=== PATIENT | female | born 1990 | race Caucasian/White ===

== ENCOUNTER 2017-01-05 19:27 | Emergency (ER) | payer OTHER ==
[2017-01-08] MEDS ORDERED: PHENERGAN25 M1 PO (13:20)
[2017-01-08] MEDS ORDERED: ZOFRAN ODT4 MG/UDTAB PO (13:20)
== END 2017-01-06 00:25 | disposition home or self-care (01) ==
LOC: D.ER 19:27
DX: K80.50 Calculus of bile duct without cholangitis or cholecystitis without obstruction (principal)

== ENCOUNTER 2017-01-09 05:58 | Day surgery (SDC) | payer MEDICAID ==
[~2017-01-09] VITALS: Ht 162.6 cm; Wt 111.1 kg
[~2017-01-09 05:58] MED LIST: PHENERGAN25 M1 PO; ZOFRAN ODT4 MG/UDTAB PO
[2017-01-09 08:24] VITALS: BP 113/73; Ht 162.6 cm; Wt 111.1 kg
[2017-01-09 08:52] LABS: HCG URINE NEGATIVE (NEGATIVE)
--- NOTE | 2017-01-09 15:56 | NUR ---
1550 REPORT TO SIRENA MIRANDA RN
--- NOTE | 2017-01-09 16:35 | NUR ---
PATIENT AMBULATES TO BATHROOM TO VOID IN TOILET, VOIDS LARGE AMOUNT. PATIENT DENIES DIZZINESS OR UNSTEADINESS, WALKS WITH STAND-BY ASSISTANCE ONLY. LEFT WRIST PIV DC'D WITH TIP INTACT. PATIENT DRESSING IN PERSONAL CLOTHING
--- NOTE | 2017-01-09 16:55 | NUR ---
DISCHARGE INSTRUCTIONS REVIEWED WITH PATIENT AND MOTHER. DISCHARGED HOME VIA WHEELCHAIR TO PRIVATE VEHICLE
--- NOTE | 2017-01-12 11:13 | OP ---
PATIENT NAME: NATALEE GOOD MEDICAL RECORD: [id number] :89 LOCATION:D.[facility] ADMISSION DATE: SURGEON: YVON WALLS MD DATE OF OPERATION: 01/09/2017 PREOPERATIVE DIAGNOSIS: Symptomatic gallstones. POSTOPERATIVE DIAGNOSES: 1. Acute cholecystitis. 2. Hepatomegaly. PROCEDURES: 1. Laparoscopic cholecystectomy. 2. Intraoperative cholangiography without immediate surgeon interpretation. 3. An 18-gauge core needle liver biopsies. SURGEON: Yvon Walls MD CHIEF OF POLICE: None. BLOOD LOSS: Minimal. ANESTHESIA: General. COMPLICATIONS: None. The risks, possible complications, and alternatives to the procedure were explained to the patient. She elects to proceed. The discussion specifically included, but was not limited to, bleeding requiring emergency reoperation, infection, intestinal injury as well as common bile duct injury. OPERATIVE COURSE: The patient was conveyed to the operating room electively on 01/09/2017. General anesthesia was induced by the anesthesia staff. The abdomen was sterilely prepped and draped. A small skin jayne was accomplished in the left upper quadrant. A Veress needle was inserted through the skin jayne into the peritoneal cavity. CO2 insufflation was begun. Once a sufficient pneumoperitoneum had been achieved, a 5-mm trocar was inserted through the incision in the right upper quadrant. Under direct internal vision, utilizing a television camera, a 12-mm trocar was inserted through an incision at the umbilicus. Two more trocars were inserted, a 5-mm trocar in the epigastrium and another 5-mm trocar far laterally in the right upper quadrant. During insertion of the Veress needle and all trocars, there appeared to have been no injury to the bowels, any intraperitoneal or retroperitoneal structures. An abdominal survey was undertaken. The liver was enlarged. The indication for the liver biopsy was hepatomegaly. Under laparoscopic guidance, I percutaneously accessed the right upper quadrant utilizing 18-gauge core needle liver biopsy device. Cores were obtained over the convexity of the liver. The biopsy sites were made hemostatic with electrocautery. The gallbladder was grasped. It was quite turgid. I advanced a cholangiogram trocar, punctured the fundus of the gallbladder, aspirated pus, and then injected dye. Under real time fluoroscopy, there was no filling of the cystic duct. It appeared that there had been impaction of a stone within the infundibulum of the gallbladder or the cystic duct. Therefore, I was unable to OPERATIVE REPORT [id number] NATALEE GOOD assess the common bile ductal structures. The cholangiogram trocar was removed. Upon removal, a good bit of pus started to come out of the gallbladder. I aspirated this in order to prevent contamination. There was some spillage of pus as well as some spillage of stones. I aspirated all the pus that I could identify and I lavaged the abdomen very thoroughly at the end of the procedure. All the stones that dropped out, that I could identify, were removed at the end of the procedure as well. The gallbladder was grasped and retracted cephalad. The infundibulum was grasped and retracted laterally. Blunt dissection was begun in the triangle of Calot. One cystic artery and one cystic duct were identified. These were clipped multiply and divided between clips. The gallbladder was then excised from its bed in the liver. It was placed within a bag retrieval device. I had to enlarge the fascial defect at the umbilicus as well as the skin defect due to the size of the gallbladder and the gallstones. A 12-mm trocar was placed and the abdomen was reinsufflated. I irrigated and aspirated the right upper quadrant as well as the right lower quadrant. A pretty extensive lavage was undertaken. I retrieved all of the gallstones that I could identify. There was no bleeding even at low pressure of 8. Utilizing the Deangelo-Stevie suture closure device and #0 Vicryl sutures, the fascia at the umbilicus was closed with interrupted #0 Vicryl sutures. The skin at the umbilicus was closed with interrupted 4-0 Vicryl Rapide sutures. The other skin incisions were closed with interrupted intracuticular 3-0 Vicryls. Benzoin and Steri-Strips were applied. The patient was then extubated and conveyed to postanesthesia care unit, where she was in stable condition. Due to some low preoperative oxygen saturations and postoperative oxygen saturations, I am going to recommend to the patient that she undergo either pulmonary function testing and/or sleep study. TRANSINT:[id number] Voice Confirmation ID: [id number] DOCUMENT ID: [id number] YVON WALLS MD at 1113 CC: [id number] DICTATION DATE: 01/09/17 1506 BIKE SHOP MANAGER: 01/09/17 1907 [facility] 01/09/17 [place] [id number] [place] [id number]
--- NOTE | 2017-01-12 11:13 | HP ---
PATIENT: NATALEE GOOD MEDICAL RECORD: [id number] ACCOUNT: [id number] LOCATION:[facility] : 89 ADMISSION DATE: 01/09/17 HISTORY AND PHYSICAL EXAMINATION CHIEF COMPLAINT: Pain. HISTORY OF PRESENT ILLNESS: The patient has been having right upper quadrant abdominal pain. It is constant. She has been having nausea. She has gallstones on ultrasound. I am going to plan for laparoscopic cholecystectomy, intraoperative cholangiography, and possible liver biopsy. The risks, possible complications, and alternatives to procedure were explained to the patient. She elects to proceed. ALLERGIES: SEPTRA. HOME MEDICATIONS: Zofran and Phenergan. SOCIAL HISTORY: Nonsmoker. PHYSICAL EXAMINATION: GENERAL: The patient does not appear acutely ill. She does not appear chronically ill. VITAL SIGNS: Reviewed. EARS: External ears appear normal. EYES: Extraocular movements are intact. NECK: Trachea is midline. CHEST: No intercostal retractions. PULMONARY: Nonlabored. No stridor. ABDOMEN: Right upper quadrant tenderness with guarding. No peritonitis to percussion. IMPRESSION: Symptomatic gallstones. PLAN: Laparoscopic cholecystectomy, intraoperative cholangiography, and possible liver biopsy. TRANSINT:[id number] Voice Confirmation ID: [id number] DOCUMENT ID: [id number] CC: Dr. Kendall Pimentel, YVON WALLS MD at 1113 CC: DR. KENDALL PIMENTEL [id number] DICTATION DATE: 01/09/17 1332 TECHNICIAN SUBMARINE CABLE EQUIPMENT: 01/09/17 1607 [facility] 01/09/17 [place] [id number] [place] [id number]
== END 2017-01-09 16:55 | disposition home or self-care (01) ==
LOC: D.OPS 05:58 → D.PAN 09:15 → D.OPS 16:55
PROVIDERS: Surgery
DX: K81.0 Acute cholecystitis (principal); R16.0 Hepatomegaly, not elsewhere classified; K21.9 Gastro-esophageal reflux disease without esophagitis; E66.9 Obesity, unspecified; Z68.41 Body mass index [BMI] 40.0-44.9, adult; Z01.812 Encounter for preprocedural laboratory examination

== ENCOUNTER → 2019-01-15 14:05 | Outpatient (CLI) | payer MEDICAID ==
[2017-01-09 08:24] VITALS: BMI 42.1
== END | disposition home or self-care (01) ==
LOC: D.LDO 14:05
PROVIDERS: ATTEND Obstetrics & Gynecology
DX: O36.8120 Decreased fetal movements, second trimester, not applicable or unspecified (principal)

== ENCOUNTER → 2019-04-21 15:09 | Outpatient (CLI) | payer MEDICAID ==
[2017-01-09 08:24] VITALS: BMI 42.1
[2019-04-21 15:30] LABS: APPEARANCE CLEAR (CLEAR); BILIRUBIN NEGATIVE (NEGATIVE); COLOR YELLOW (YELLOW); GLUCOSE NEGATIVE (NEGATIVE); KETONE NEGATIVE (NEGATIVE); NITRITE NEGATIVE (NEGATIVE); PROTEIN NEGATIVE (NEGATIVE); UROBILINOGEN NORMAL (NORMAL)
[2019-04-21 17:45] LABS: BASOPHILS 0.2 % (0-2); EOSINOPHILS 1.8 % (0-7); HEMATOCRIT 30.1 % (36.0-48.0); HEMOGLOBIN 9.4 g/dL (12-16); IMMATURE GRANULOCYTES 0.2 % (0-5); LYMPHOCYTES 20.2 % (15-50); MCH 27.2 pg (26.0-34.0); MCHC 31.2 g/dL (31.0-37.0); MCV 87.2 fL (80.0-100.0); MEAN PLATELET VOLUME 9.8 fL (7.4-10.4); MONOCYTES 5.9 % (2-11); NEUTROPHILS 71.7 % (40-80); PLATELET COUNT 243 10x3/uL (130-400); RBC 3.45 10x6/uL (4.00-5.40); RDW 14.1 % (11.5-14.5); WBC 8.8 10x3/uL (4.8-10.8)
== END | disposition home or self-care (01) ==
LOC: D.LDO 15:09
PROVIDERS: ATTEND Obstetrics & Gynecology
DX: O26.899 Other specified pregnancy related conditions, unspecified trimester (principal); Z3A.00 Weeks of gestation of pregnancy not specified; R42 Dizziness and giddiness; R11.0 Nausea

== ENCOUNTER 2019-05-12 09:27 | Inpatient (IN) | payer MEDICAID ==
[2019-05-12] VITALS (11 sets, daily range): BP systolic 93–128; BP diastolic 51–82; Ht 162.6 cm; Wt 106.6 kg
[~2019-05-12] VITALS: Ht 162.6 cm; Wt 106.6 kg
[2019-05-12] MEDS ORDERED: SYNTHROID150 MCG PO (10:17)
[2019-05-12] MEDS ORDERED: PRENAVITE1 TAB PO (10:18)
[2019-05-12 11:37] LABS: HEMATOCRIT 29.8 % (36.0-48.0); HEMOGLOBIN 9.4 g/dL (12-16); MCHC 31.5 g/dL (31.0-37.0); MCV 85.6 fL (80.0-100.0); MEAN PLATELET VOLUME 10.3 fL (7.4-10.4); RBC 3.48 10x6/uL (4.00-5.40); RDW 14.8 % (11.5-14.5); WBC 9.1 10x3/uL (4.8-10.8)
--- NOTE | 2019-05-12 13:15 | NUR ---
BABY BOY BORN AT 1303.
--- NOTE | 2019-05-12 14:06 | NUR ---
RECEIVED PT FROM VIA BED TO ROOM 1273. BED LOCKED AND PLACED IN LOW POSITION. VSS. HRRR WITHOUT AUDIBLE MURMUR. BBS CLEAR. BS X 4. ABDOMEN SOFT/NON-DISTENDED. FUNDUS FIRM AT U/1. RUBRA LOCHIA MOD AMT. PT STATES UNABLE TO MOVE LEGS FREELY. ABDOMINAL INCISION WITHOUT REDNESS, SWELLING OR DRAINAGE NOTED. PIV SITE CLEAR TO RIGHT HAND. NEW BAG PITOCIN 20 UNITS IN NS 1000 ML UP AT 125 ML/HR. GONZALEZ TO GRAVITY DRAINING DARK, YELLOW URINE. 200 ML EMPTIED FROM BAG. FRESH ICE PACK TO INCISION. TORADOL 30 MG GIVEN SIVP OVER 2 MINUTES FOR PT C/O ABDOMINAL/INCISIONAL PAIN/BURNING OF "7" ON 0-10 PAIN SCALE. SR UP X 2. CALL LIGHT IN REACH.
--- NOTE | 2019-05-12 14:30 | NUR ---
SCDS ON BLE. PUMP ON. PT INSTRUCTED ON PURPOSE. VERBALIZES UNDERSTANDING. SPRITE PROVIDED AT PT REQUEST.
--- NOTE | 2019-05-12 15:03 | NUR ---
PT C/O ABDOMINAL PAIN/BURNING OF "8" ON 0-10 PAIN SCALE. DILAUDID 2 MG GIVEN IVP OVER 2 MINUTES. PT INSTRUCTED ON MED. VERBALIZES UNDERSTANDING.
--- NOTE | 2019-05-12 15:12 | NUR ---
PT SITTING IN SEMI-ALLISON'S POSITION IN BED. SLIGHTLY DROWSY. FUNDUS FIRM AT U/1. RUBRA LOCHIA MOD AMT. PERIPADS CHANGED. PT UNABLE TO LEFT LEGS AT THIS TIME. ABDOMINAL INCISION WITHOUT REDNESS, SWELLING OR DRAINAGE NOTED.
--- NOTE | 2019-05-12 15:32 | NUR ---
O2 ON PER N/C AT 2 L/MIN. O2 SAT FROM 93%-98%.
--- NOTE | 2019-05-12 16:13 | NUR ---
PERICARE DONE. FUNDUS FIRM AT U/1. RUBRA LOCHIA SMALL TO MOD AMT. NO CLOTS EXPRESSED OR NOTED ON PERIPADS. PERIPADS AND CHUX CHANGED. PT MOVES WELL WITH MUCH ENCOURAGEMENT.
--- NOTE | 2019-05-12 16:14 | NUR ---
FRESH ICE PACK TO INCISION. SURGICAL SPLINT PILLOW PROVIDED.
--- NOTE | 2019-05-12 16:16 | NUR ---
PT INSTRUCTED ON INCENTIVE SPIROMETER. PT PULLS 2000. PT TURNS, COUGHS AND DEEP BREATHES.
--- NOTE | 2019-05-12 16:45 | NUR ---
PT SISTER AT DESK. STATES PT ASKING WHEN CAN SHE EAT. THIS NURSE TO ROOM. PT PROVIDED WITH SPRITE AND JEJUANCARLOSO PER REQUEST.
--- NOTE | 2019-05-12 18:18 | NUR ---
PT SITTING UP IN BED. FUNDUS FIRM AT U/1. RUBRA LOCHIA SCANT AMT. PERIPADS CHANGED. FRESH ICE PACK TO INCISION. I/O COMPLETED.
--- NOTE | 2019-05-12 18:20 | NUR ---
DR BILLY NOTIFIED OF URINE OUTPUT. ORDERS RECEIVED.
--- NOTE | 2019-05-12 19:06 | NUR ---
BEDSIDE SHIFT REPORT COMPLETED AT THIS TIME
--- NOTE | 2019-05-12 19:23 | NUR ---
SHIFT ASSESSMENT COMPLETED, SEE FLOWSHEET
--- NOTE | 2019-05-12 20:45 | NUR ---
DR BILLY NOTIFIED OF URINE OUTPUT OF 55ML SINCE 1922, NEW ORDER NOTED TO TRANFUSE 2 UNITS PRBC AND PREMEDICATE WITH 50 MG BENADRYL PO AND 1000MG TYLENOL PO.
--- NOTE | 2019-05-12 20:59 | NUR ---
ORDERS PLACED AND PATIENT INFORMED OF PLAN OF CARE. ALL QUESTIONS ANSWERED AND PT VERBALIZES UNDERSTANDING.
--- NOTE | 2019-05-12 21:28 | NUR ---
INFANT RETURNED TO ROOM VIA OPEN CRIB, ID VERIFIED. PERICARE DONE AT THIS TIME, SMALL RUBRA NOTED, PAD CHANGED. INFANT HANDED TO MOM FOR . NO FURTHER NEEDS IDENTIFIED, WILL CONTINUE TO MONITOR
--- NOTE | 2019-05-12 21:36 | NUR ---
PATIENT PRE-MEDICATED WITH TYLENOL AND BENADRYL PER MD ORDERS, SEE EMAR
--- NOTE | 2019-05-12 21:50 | NUR ---
PTS ID, BLOOD BAND NUMBER, BLOOD TYPE, , AND PRBC'S EXPIRATION DATE MATCHED AND VERIFIED WITH CARTER AVILA AT THE BEDSIDE AT THIS TIME
--- NOTE | 2019-05-12 21:55 | NUR ---
PRE-TRANSFUSION VITAL SIGNS OBTAINED
--- NOTE | 2019-05-12 21:57 | NUR ---
BLOOD TRANSFUSION STARTED AT 50ML/HR AT THIS TIME
--- NOTE | 2019-05-12 22:13 | NUR ---
PT DENIES ANY S/S OF BLOOD TRANSFUSION REACTION, RATE CHANGED TO 75ML/HR
--- NOTE | 2019-05-12 22:28 | NUR ---
PT DENIES S/S OF BLOOD TRANSFUSION REACTIONS, IV RATE CHANGED TO 125ML/HR
--- NOTE | 2019-05-12 22:45 | NUR ---
LINDA PROVIDED FOR PATIENT PER HER REQUEST, ALL LINENS PROVIDED FOR FOB TO SPEND THE NIGHT. NO FURTHER NEEDS IDENTIFIED AT THIS TIME, WILL CONTINUE TO MONITOR.
--- NOTE | 2019-05-12 23:05 | NUR ---
PT DENIES S/S OF BLOOD TRANSFUSION REACTION, IV RATE CHANGED TO 125ML/HR
--- NOTE | 2019-05-12 23:58 | NUR ---
PERICARE PERFORMED, SMALL RUBRA BLEEDING NOTED, CLEAN PADS PLACED AND FRESH ICE PACK PLACED. NO FURTHER NEEDS IDENTIFIED, BLOOD CONTINUE TO INFUSE VIA ALARIS PUMP WITH NO S/S OF REACTION NOTED. WILL CONTINUE TO MONITOR
--- NOTE | 2019-05-13 00:14 | NUR ---
blood transfusion completed at this time, line flushed with normal saline. vs wnl.
--- NOTE | 2019-05-13 00:43 | NUR ---
CHICKEN BROTH AND CRACKERS PROVIDED PER PT REQUEST. REMAINS AT BEDSIDE IN OPEN CRIB. SIGNIFICANT OTHER REMAINS AT BEDSIDE FOR SUPPORT. PT DENIES OTHER NEEDS AT THIS TIME. WILL CONTINUE TO MONITOR.
--- NOTE | 2019-05-13 01:09 | NUR ---
PTS ID,,BLOOD BAND#, BLOOD TYPE, UNIT NUMBER AND EXPIRATION DATE VERIFIED WITH CARTER GOMEZ AT THE BEDSIDE. VS TAKEN.
--- NOTE | 2019-05-13 01:12 | NUR ---
IV FLUSHED WITH NORMAL SALINE, BLOOD TRANFUSION INITIATED AT THIS TIME VIA ALARIS PUMP AT 50ML/HR
--- NOTE | 2019-05-13 01:27 | NUR ---
PATIENT DENIES S/S OF BLOOD TRANSFUSION REACTION, IV SITE REMAINS PATENT WITHOUT REDNESS,SWELLING OR SIGNS OF INFILTRATION. IV RATE CHANGED TO 75ML/HR
--- NOTE | 2019-05-13 02:30 | NUR ---
PATIENT RESTING WITH AUDIBLE SNORING. NO DISTRESS NOTED. BLOOD REMAINS INFUSING VIA ALARIS PUMP WITH NO S/S OF TRANSFUSION REACTION AT THIS TIME. WILL CONTINUE TO MONITOR
--- NOTE | 2019-05-13 03:40 | NUR ---
BLOOD TRANSFUSION COMPLETED AT THIS TIME, NO ADVERSE REACTION NOTED. IV FLUSHED WITH NS AND SALINE LOCKED AT THIS TIME.
--- NOTE | 2019-05-13 04:30 | NUR ---
CATHETER REMOVED AT THIS TIME WITHOUT INCIDENT. PERICARE PERFORMED, SMALL RUBRA BLEEDING NOTED. PAD AND PANTIES PLACED. SCD'S REMOVED AND PT OUT OF BED TO AMBULATE. PATIENT AMBULATED IN [place] WITH STEADY GAIT, BACK TO ROOM AND PT DESIRES TO TRY TO VOID. 25 ML NOTED IN URINE HAT. CLEAN PAD AND PANTIES PLACED AND PT BACK TO BED. BED REMAINS LOCKED IN LOW POSITION, SIDE RAILS UP X2, CALL SOSA AND TRAY TABLE IN REACH. WILL CONTINUE TO MONITOR
--- NOTE | 2019-05-13 05:42 | NUR ---
ADMINISTERED PERCOCET 10/325MG PO PER MD ORDERS AND PT REQUEST. NO FURTHER NEEDS IDENTIFIED. PT BE REMAINS LOCKED IN LOW POSITION, SIDE RAILS UPX2, CALL SOSA AND TRAY TABLE IN REACH. WILL CONTINUE TO MONITOR
[2019-05-13 06:08] LABS: RAPID PLASMA REAGIN Non Reactive (Non Reactive)
[2019-05-13 06:10] LABS: HEMATOCRIT 31.7 % (36.0-48.0); MCHC 31.5 g/dL (31.0-37.0); MCV 85.4 fL (80.0-100.0); MEAN PLATELET VOLUME 10.2 fL (7.4-10.4); RBC 3.71 10x6/uL (4.00-5.40); RDW 14.9 % (11.5-14.5); WBC 9.3 10x3/uL (4.8-10.8)
--- NOTE | 2019-05-13 06:30 | NUR ---
PATIENT SLEEPING, EASILY AROUSED TO VERBAL. DENIES NEEDS AT THIS TIME, RATES HER PAIN 3/10.
[2019-05-13 07:34] VITALS: BP 104/58
--- NOTE | 2019-05-13 07:46 | NUR ---
ASSESSMENT DONE. SITTING UP IN BED. BABY PLACED INTO CRIB. BOWEL SOUNDS PRESENT. INCISION APPEARANCE WNL. SMALL LOCHIA NOTED ON PAD. FUNDUS UU/FIRM. REG DIET SERVED. DENIES NEEDS.
--- NOTE | 2019-05-13 08:02 | NUR ---
THIS RN TO ROOM PER PT REQUEST VIA CALL LIGHT FOR NURSE ASSIST TO BR. PT AMBULATES TO BR WITH MINIMAL ASSIST, STEADY GAIT, DENIES FEELING DIZZY. PT DENIES NEED FOR ASSIST IN BR. PROVIDED WITH CLOTHS, PERIPADS, AND PANTIES FOR PERICARE. PT INSTRUCTED TO VOID IN URINE CONTAINER TO MEASURE URINE OUTPUT. VERBALIZES UNDERSTANDING. THIS RN REMAINS IN ROOM FOR ASSIST IF NEEDED.
--- NOTE | 2019-05-13 08:05 | NUR ---
VOIDED 300CC INTO CONTAINER.
--- NOTE | 2019-05-13 10:30 | NUR ---
THIS RN TO ROOM PER PT CENTRIFUGAL OPERATOR LIGHT. PT REQUESTING PAIN MEDS AND STATES SHE FEELS LIKE SHE HAS MUCOUS IN HER THROAT SHE NEEDS TO COUGH UP. PT GIVEN WATER TO SIP TO LOOSEN SECRETIONS. PAIN MEDS ADMIN ORDERED, SEE EMAR. INFANT PLACED IN [place] AT BEDSIDE. PT POSITIONED TO SITTING UP IN BED, APPROX 90 DEGREES. PT INSTRUCTED ON BRACING INCISION, DEEP BREATHING x3, THEN COUGHING UP SECRETIONS. PT DOES SO INSTRUCTED. STATES SHE FEELS SHE CLEARED MUCOUS IN HER THROAT. PT ENCOURAGED TO CONTINUE WITH COUGHING AND DEEP BREATHING WITH INCENTIVE SPIROMETER AT LEAST EVERY 2 HOUR INSTRUCTED. UNDERSTANDING VERBALIZED. PT DENIES FURTHER NEEDS. SRUx2, CALL LIGHT IN REACH.
--- NOTE | 2019-05-13 11:00 | NUR ---
UP TO BATHROOM- VOIDED 300CC URINE IN CONTAINER.
--- NOTE | 2019-05-13 11:26 | NUR ---
DR BILLY ON UNIT, GIVES VERBAL ORDER TO CHANGE PRN MOTRIN TO SCHEDULED Q6 HOURS. WILL CHANGE ORDER.
--- NOTE | 2019-05-13 13:25 | NUR ---
UP TO SHOWER- LINENS CHANGED. DENIES NEEDS.
--- NOTE | 2019-05-13 14:10 | NUR ---
EATING FOOD FORM CHICK WU- REQUESTING PAIN MEDICATION RATES PAIN A 6 ON SCALE OF 0-10. STATES PAIN IS AT INCISION AREA.
--- NOTE | 2019-05-13 15:00 | NUR ---
ambulating in hallway.
--- NOTE | 2019-05-13 16:12 | NUR ---
PT STATES CAN FEEL GAS RUMBLING BUT NOT PASSING. REQUESTING MEDICATION FOR THIS. MED GIVEN. EXPLAINED THAT HAS DULCOLAX SUPP AND SIMETHICONE CHEW. REQUESTS SIMETHICONE AT THIS TIME.
--- NOTE | 2019-05-13 16:30 | NUR ---
dr bowden here to see pt. orders saline lock out. no other orders.
--- NOTE | 2019-05-13 16:50 | NUR ---
saline lock removed- cath intact. pressure held and bandaide applied.
--- NOTE | 2019-05-13 17:17 | NUR ---
PT CALLS OUT WASTE WATER OPERATOR LIGHT REQUESTING SOMETHING FOR CRAMPING. PT ADMIN SCHEDULED MOTRIN PER ORDER, SEE EMAR FOR DOC. MED TIMES WRITTEN ON BOARD. PT DENIES FURTHER NEEDS AT THIS TIME. SRDevonte2, CL IN REACH. WILL CONT TO MONITOR.
--- NOTE | 2019-05-13 19:11 | NUR ---
BEDSIDE SHIFT REPORT COMPLETED WITH CARTER JOSE TO ASSUME PT CARE
--- NOTE | 2019-05-13 19:11 | NUR ---
PT UP AND WALKING IN ROOM. NO DISTRESS NOTED. PT AMBULATED TO ROOM 1257. SPOUSE AT SIDE AND SUPPORTIVE. Nir JO RN
--- NOTE | 2019-05-13 19:53 | NUR ---
PT AMBULATING IN HALLWAY PUSHING INFANT IN OPEN CRIB, SIGNIFICANT OTHER AT HER SIDE. NO DISTRESS NOTED, NO NEEDS IDENTIFIED. WILL CONTINUE TO MONITOR.
[2019-05-13 20:38] VITALS: BP 115/57
--- NOTE | 2019-05-13 20:38 | NUR ---
SHIFT ASSESSMENT COMPLETED, SEE FLOWSHEET
--- NOTE | 2019-05-13 21:44 | NUR ---
PATIENT IN BATHROOM, STATES THAT HER BLEEDING IS SMALL WITHOUT CLOTS. NO NEEDS IDENTIFIED. REMAINS IN ROOM IN OPEN CRIB. WILL CONTINUE TO MONITOR
--- NOTE | 2019-05-13 22:05 | NUR ---
PATIENT RESTING QUIETLY ON RIGHT SIDE WITH EYES CLOSED, NO DISTRESS NOTED. WILL CONITNUE TO MONITOR.
--- NOTE | 2019-05-13 23:14 | NUR ---
PT SITTING UP IN BED, FOB ON COUCH HOLDING . PT DENIES NEEDS, ADMINISTERED MOTRIN 600MG PO PER MD ORDERS. BED REMAINS LOCKED IN LOW POSITION, SIDE RAILS UPX2, CALL SOSA AND TRAY TABLE IN REACH. WILL CONTINUE TO MONITOR
--- NOTE | 2019-05-13 23:50 | NUR ---
PATIENT , ADMINISTERED PERCOCET 10/325MG PO PER PT REQUEST AND MD ORDERS.
--- NOTE | 2019-05-14 02:10 | NUR ---
PT RESTING WITH EYES CLOSED, HOLDING , PT AROUSES TO SOFT VERBAL STIMULATION, PT INFORMED THAT INFANT CANNOT BE IN BED WITH HER WHILE SHE IS SLEEPING, PT VERBALIZES UNDERSTANDING, INFANT TO OPEN CRIB CART AT BEDSIDE, PT INQUIRES ABOUT PAIN MED, INFORMED PT THAT IT IS NOT TIME FOR PAIN MED AT THIS TIME, BUT I WILL ADM WHEN DUE, PT VERBALIZES UNDERSTANDING, DENIES FURTHER NEEDS, FOB ASLEEP AT BEDSIDE
--- NOTE | 2019-05-14 03:55 | NUR ---
PT ADMINISTERED PAIN MEDICINE AT THIS TIME, SEE EMAR.
--- NOTE | 2019-05-14 05:53 | NUR ---
INFANT TO ROOM VIA OPEN CRIB PER CARTER SCOTT. PATIENT SLEEPING WITH EVEN RESPIRATIONS, NO DISTRESS NOTED.
--- NOTE | 2019-05-14 07:08 | NUR ---
BEDSIDE SHIFT REPORT COMPLETED. PT AWAKENS BRIEFLY AND RATES PAIN AT 5/10, STATES UNDERSTANDING OF WHEN PAIN MED CAN BE GIVEN AGAIN, SHE TURNS SELF TO LEFT SIDE AND APPEARS TO GO BACK TO SLEEP. SIDE RAILS UP X 2 WITH CALL LIGHT IN REACH AND SIG OTHER SLEEPING ON BEDSIDE COUCH.
--- NOTE | 2019-05-14 09:00 | NUR ---
AM ASSESSMENT COMPLETED CHARTED, FUNDUS FIRM AT U/1 WITH SCANT, PT DENIES CLOTS WITH VOIDS. SHE RATES PAIN AT 7/10 AND ASK FOR PAIN MED. INFANT BROUGHT IN TO ROOM VIA CRIB PER NURSERY NURSE. PT MOVES SELF TO SITTING UP IN BED, SIDE RAILS UP X 2 WITH CALL LIGHT IN REACH.
--- NOTE | 2019-05-14 09:28 | NUR ---
pain med given as pt requested for pain at incision site that she rates at 7/10. infant at this time. side rails up x 2 with call light in reach.
--- NOTE | 2019-05-14 14:12 | NUR ---
C/O ABD DISCOMFORT 10/23 FOLLOWING GETTING OOB TO USE BR. PERCOCET GIVEN PER PT REQUEST. TDAP VACCINE DISCUSSED AND PT EDUCATED ON IT, INFO SHEET PROVIDED. TDAP GIVEN TO RIGHT VENTROGLUTEAL. ICE WATER PROVIDED. INFANT IN FOB'S ARMS. DENIES ADDITIONAL NEEDS. BED IN LOW POSITION WITH SRUP X2. CALL LIGHT AND PHONE WITHIN REACH. MED RECORDS NOTIFIED OF NEED FOR ACKNOWLEDGEMENT OF PATERNITY AND WILL COME TO ROOM.
--- NOTE | 2019-05-14 14:49 | NUR ---
PAIN REASSESSMENT COMPLETED, 07/24. DENIES NEEDS AT THIS TIME. REPORTS THAT PERSONEL FROM MED RECORD DID COME TO ROOM FOR ACKNOWLEDGEMENT OF PATERNITY. BED IN LOW POSITION WITH SRUP X2. CALL LIGHT AND PHONE WITHIN REACH. PT WATCHING TV AT THIS TIME. WILL CONTINUE TO MONITOR.
--- NOTE | 2019-05-14 16:33 | NUR ---
ICE CHIPS PROVIDED PER REQUEST. DENIES ADDITIONAL NEEDS. BED IN LOW POSITION WITH SRUP X2. CALL LIGHT AND PHONE WITHIN REACH. WILL CONTINUE TO MONITOR.
--- NOTE | 2019-05-14 17:04 | NUR ---
C/O INCISIONAL DISCOMFORT 08/23. PERCOCET GIVEN. ICE WATER PROVIDED. DENIES ADDITIONAL NEEDS. SIGNIFICANT OTHER AT BEDSIDE, SUPPORTIVE AND ATTENTIVE TO PT AND NEEDS. BED IN LOW POSITION WITH SRUP X2. CALL LIGHT AND PHONE WITHIN REACH. WILL CONTINUE TO MONITOR.
--- NOTE | 2019-05-14 17:50 | NUR ---
PAIN REASSESSMENT COMPLETED. -08/23. DENIES NEED FOR ADDITIONAL INTERVENTION. BONDING WITH . DENIES NEEDS. BED IN LOW POSITION WITH SRUP X2. CALL LIGHT AND PHONE WITHIN REACH.
--- NOTE | 2019-05-14 18:15 | NUR ---
PT REQUEST PRESCRIPTIONS BE CALLED INTO [facility].
--- NOTE | 2019-05-14 18:45 | NUR ---
PRESCRIPTIONS FOR MOTRIN 800 MG Q8H FOR 3 DAYS THEN Q8HPRN PAIN QTY 30, NO REFILLS AND TYLENOL #4 1 TAB Q4HPRN PAIN OR 2 TAB Q6HPRN PAIN QTY 30, NO REFILLS TO MARCELA PHARMACIST AT [facility]. VERIFIED WITH READBACK.
--- NOTE | 2019-05-14 19:00 | NUR ---
REPORT RECEIVED FROM YANE MACHADO.
--- NOTE | 2019-05-14 19:26 | NUR ---
PATIENT SITTING UP IN BED. STATES PAIN 6 OUT OF 10. PATIENT GIVEN MOTRIN 600 MG PO PRN PAIN. ASSESSMENT AND VITAL SIGNS DONE. RESPIRATIONS AT EASE. LUNG SOUNDS CLEAR IN ALL SCHAFER. HEART REGULAR RATE AND RHYTHM. ABDOMEN SOFT NONTENDER. BOWEL SOUNDS PRESENT X 4. FUNDUS FIRM, 2 BELOW UMBILICUS, AND MILDLINE. SCANT AMOUNT OF LOCHIA NOTED TO CAMILA PAD. INCISION INTACT. NO REDNESS, EDEMA, OR DRAINAGE NOTED. NO EDEMA NOTED TO EXTREMITIES. PATIENT DENIES ANY NEEDS OR CONCERNS. BED IN LOWEST POSITION, SIDE RAILS UP X 2, C/L AND WATER WITHIN REACH.
[2019-05-14 19:28] VITALS: BP 108/52
[2019-05-14] MEDS ORDERED: TYLENOL #4 W/CO1 TAB PO (19:35)
[2019-05-14] MEDS ORDERED: IBUPROFEN800 MG PO (19:36)
--- NOTE | 2019-05-14 21:00 | NUR ---
PATIENT UP TO SHOWER AT THIS TIME. TOWELS PROVIDED. PATIENT DENIES ANY NEEDS OR CONCERNS.
--- NOTE | 2019-05-14 21:30 | NUR ---
PATIENT SITTING UP IN BED FEEDING INFANT. STATES PAIN 6 OUT OF 10. PRN PERCOCET 10/325 ADMINISTERED PO AT THIS TIME. PATIENT DENIES ANY FURTHER NEEDS. BED IN LOWEST POSITION, SIDE RAILS UP X 2, C/L AND WATER WITHIN REACH.
--- NOTE | 2019-05-14 23:00 | NUR ---
PATIENT SITTING UP IN BED HOLDING INFANT. DENIES ANY NEEDS OR CONCERNS AT THIS TIME. BED IN LOWEST POSITION, SIDE RAILS UP X 2, C/L AND WATER WITHIN REACH.
--- NOTE | 2019-05-15 00:15 | NUR ---
PATIENT LYING QUIETLY IN BED WITH EYES CLOSED. NO SIGNS OF DISTRESS NOTED. BED IN LOWEST POSITION, SIDE RAILS UP X 2, C/L AND DRINK WITHIN REACH.
--- NOTE | 2019-05-15 01:13 | NUR ---
PATIENT SITTING UP IN BED HOLDING INFANT. STATES PAIN LEVEL IS A 7 OUT OF 10. MOTRIN 600 MG ADMINISTERED PO. PATIENT DENIES FURTHER NEEDS. BED IN LOWEST POSITION, SIDE RAILS UP X 2, C/L AND WATER WITHIN REACH.
--- NOTE | 2019-05-15 03:54 | NUR ---
PATIENT LYING IN BED WITH EYES CLOSED. EASILY AROUSED. STATES PAIN LEVEL 8 OUT OF 10. PERCOCET 10/325 ADMINISTERED PO. VITAL SIGNS DONE. PATIENT DENIES FURTHER NEEDS. BED IN LOWEST POSITION, SIDE RAILS UP X 2, C/L AND WATER WITHIN EACH.
[2019-05-15 03:59] VITALS: BP 115/59
--- NOTE | 2019-05-15 06:00 | NUR ---
PATIENT SITTING UP IN BED HOLDING INFANT. DENIES PAIN AT THIS TIME. DENIES ANY NEEDS OR CONCERNS. BED IN LOWEST POSITION, SIDE RAILS UP X 2, C/L AND WATER WITHIN REACH.
--- NOTE | 2019-05-15 07:30 | NUR ---
AM ASSESSMENT COMPLETED CHARTED ON FLOWSHEET. PT RATES PAIN AT 3/10. FUNDUS FIRM AT U/U WITH LIGHT BLEEDING NOTED TO CAMILA PAD. INCISION IS CLEAN AND DRY AND PT USING CAMILA PAD INSTRUCTED. DENIES NEEDS AT THIS TIME. INFANT IN CRIB AT BEDSIDE AND PT HAS CALL LIGHT IN REACH.
--- NOTE | 2019-05-15 08:09 | NUR ---
BeverlyliuValarie 05/15/2019 S: Client states she started formula due to being jaundice. She has been but experiences pain and is unsure why. It does hurt when infant latches. She fed some formula and nursed for 10 minutes about 7:30. Verbally agrees to let nursery staff know she needs help with latching for next feeding. Denies any other concerns. O: Patient walking around in room, father of baby holding on sofa, and sleeping. Educated patient that takes time, practice, and patience. Explained normal feeding patterns, infant feeding cues, how to verify infant is latched correctly to the breast, positions, and encouraged to asked nursery staff for help as needed with . A: Client concern with infant latching due to pain. P: CLC will informed nursery nurse of patient needs with help with latching infant. Rashard Jett CLC
--- NOTE | 2019-05-15 09:08 | NUR ---
PAIN MED GIVEN SCANNED TO EMAR. PT RATES PAIN AT 7/10. INFANT TAKEN TO NBN VIA [facility] SO THAT PT MAY SHOWER.
--- NOTE | 2019-05-15 10:45 | NUR ---
verbal and written discharge instructions gone over without questions or concerns. pt states that sig other has already picked up meds that were called in last night. pt also states understanding to s/s of infection and that she should go to er if experiences any of these. Nursery notified that pt d/c was completed.
--- NOTE | 2019-05-15 11:20 | NUR ---
infant secured in to carrier and verified by nursery nurse. pt taken out by wheelchair with infant, home by private car with sig other.
--- NOTE | 2019-05-17 10:50 | OP ---
PATIENT NAME: NATALEE GOOD MEDICAL RECORD: [id number] :91 LOCATION:[id number] ADMISSION DATE:05/12/19 SURGEON: HUY BILLY MD DATE OF OPERATION: 05/12/2019 PREOPERATIVE DIAGNOSES: 1. Nonreassuring monitoring. 2. at 38 and 4. 3. Prior section . POSTOPERATIVE DIAGNOSES: 1. Nonreassuring monitoring. 2. at 38 and 4. 3. Prior section . PROCEDURE: Repeat low transverse section. SURGEON: Huy Billy MD HOSE CEMENTER: Siddhartha Glaser. ANESTHESIA: Spinal. ANESTHESIOLOGIST: Dr. Gunter. FINDINGS: Viable male infant, vertex presentation, Apgars 9 and 9, weight 8 pounds 5 ounces. Nuchal cord times 1 reduced. Uterus, tubes, and ovaries unremarkable. SPECIMEN REMOVED: Placenta. SPECIMEN DISPOSITION: Discarded. ESTIMATED BLOOD LOSS: 700 cc. FLUIDS: 2300 cc of lactated Ringer's. URINE OUTPUT: 100 cc of clear urine. COMPLICATIONS: None. DRAINS: Rodriguez to gravity. INDICATIONS: The patient is a 29-year-old parous female with a history of prior section with persistent decreased movement. The patient is at 38 and 4. After discussion with the patient, a decision was made to move forward with a repeat delivery. DESCRIPTION OF PROCEDURE: After informed consent was assured, the patient was taken to the operating room where anesthetic was obtained. The patient now prepped and draped in the usual sterile fashion. An incision was made over the old scar and carried down to the underlying layer of the fascia. The fascia was opened in the midline and extended laterally. The rectus bellies are dissected free superiorly and inferiorly. The rectus bellies were now in the midline. The peritoneum was entered sharply. The peritoneal opening was OPERATIVE REPORT [id number] NATALEE GOOD extended with good visualization of the bladder. The DeLee all-purpose retractor was now inserted and vesicouterine flap was developed. The retractor was now inserted into the space and a low transverse hysterotomy was performed. Infant was delivered on to the abdomen atraumatically. A nuchal cord was reduced as the infant is delivered. The cord was doubly clamped and cut and the infant was passed to the attendance. The placenta was delivered via Crede maneuver and uterus exteriorized and cleared of all clot and debris. The uterus was closed with a running stitch of chromic. After the uterus has been closed, the uterus was returned to the abdomen and the pelvis and the abdomen was irrigated. The inspection of the hysterotomy reveals adequate hemostasis. The rectus bellies were reapproximated loosely with a horizontal mattress in the midline. Fascia was closed with a looped PDS. Subcutaneous tissues were irrigated, bleeding vessels cauterized, and the skin was reapproximated with a 3-0 Monocryl on a Sekou needle. Dermabond was applied. Sponge, lap, and needle count has been times 2. TRANSINT:[id number] Voice Confirmation ID: [id number] DOCUMENT ID: [id number] HUY BILLY MD at 1050 CC: [id number] DICTATION DATE: 05/12/19 1332 COPY READER: 05/12/19 1838 DIS IN 05/15/19 [facility] [address] [place] [address]
== END 2019-05-15 11:20 | disposition home or self-care (01) | DRG 788 ==
LOC: D.LD 09:27
PROVIDERS: ADMIT Obstetrics & Gynecology; ATTEND Obstetrics & Gynecology
PROC: 10D00Z1 Extraction of Products of Conception, Low, Open Approach (ICD-10-PCS; principal; 2019-05-12 12:26)
DX: O34.211 Maternal care for low transverse scar from previous cesarean delivery (principal); O36.8330 Maternal care for abnormalities of the fetal heart rate or rhythm, third trimester, not applicable or unspecified; Z3A.38 38 weeks gestation of pregnancy; Z37.0 Single live birth